=== PATIENT | male | born 1950 | race Caucasian/White ===

== ENCOUNTER 2018-11-16 19:14 | Emergency (ER) | payer MEDICARE, BC ==
[~2018-11-16] VITALS: Ht 188 cm; Wt 79.5 kg
[2018-11-16] MEDS ORDERED: diphenhydrAMINE 25mg capsule PO ONE (21:15)
[2018-11-16 22:26] VITALS: BP 126/82
== END 2018-11-16 22:35 | disposition home or self-care (01) ==
LOC: ER 19:14
DX: R22.0 Localized swelling, mass and lump, head (principal); T78.3XXA Angioneurotic edema, initial encounter; I10 Essential (primary) hypertension; Y92.89 Other specified places as the place of occurrence of the external cause
CPT/HCPCS: 99282; Q0163